=== PATIENT | male | born 1995 | race Caucasian/White ===

== ENCOUNTER 2025-02-16 18:15 | Emergency (ER) | payer OTHER, SELFPAY ==
--- NOTE | 2025-02-16 18:29 | ED_ITS ---
HPI - Abdominal Pain General Chief Complaint: Abdominal Pain Stated Complaint: Abdominal Pain Time Seen by Provider: 02/16/25 18:29 Source: patient and RN notes reviewed Mode of arrival: ambulatory Limitations: no limitations History of Present Illness HPI narrative: 29 y/o male presented for c/o right lower abdominal pain. Onset 0500 it woke him from sleep. Says at the time it was across the lower abdomen, but has been persistent and constant to the RLQ. Had a normal stool then diarrhea throughout the day. Denies hematochezia, melena, n/v/f/c. no meds for symptoms. Reports hx renal stones. Related Data Home Medications ?Medication ?Instructions ?Recorded ?Confirmed ?Last Taken ?Type No Home Medications 02/16/25 02/16/25 Unknown History Allergies Allergy/AdvReac Type Severity Reaction Status Date / Time amoxicillin Allergy Hives Verified 02/16/25 18:35 Review of Systems Review of Systems: per HPI All systems reviewed & are unremarkable except as noted in HPI and below PMFSH Comments At time of signature, I have reviewed and agree with nursing past medical, surgical, social and family history unless otherwise noted. Please see nursing chart for further information. There is no relevant family history pertinent to the presenting complaint Exam Narrative: GENERAL: mildly ill-appearing, nontoxic and in no acute distress. EYES: EOMI. Conjunctivae normal. ENT: Mucous membranes pink and moist. CHEST: No respiratory distress. Clear to auscultation. HEART: Regular rate and rhythm. No murmur appreciated. Normal peripheral pulses. ABDOMEN: abd soft, nondistended, normal active bowel sounds. Tender abdomen RLQ; Positive Rovsing sign. No guarding, rebound tenderness, asymmetry or pulsatile mass. EXTREMITIES: Normal range of motion. No edema. SKIN: Warm, dry, no rash. Capillary refill normal. Normal skin turgor. NEURO: No focal deficits. Alert and oriented x3. PSYCH: Normal affect. Course Course Emergency Course: Patient is aware of diagnosis, understands and agrees to treatment plan. Anticipatory guidance given. Patient agrees to follow-up as directed and is aware of reasons to seek care at the emergency department. Portions of this record may have been created with voice recognition software Level of Care: Express Care Visit Vital Signs Vital signs: Vital Signs Temperature 98.9 F 02/16/25 18:30 Pulse Rate 103 H 02/16/25 18:30 Respiratory Rate 20 02/16/25 18:30 Blood Pressure 121/83 02/16/25 18:30 Pulse Oximetry 99 02/16/25 18:30 Oxygen Delivery Room Air 02/16/25 18:30 Temperature 98.9 F 02/16/25 18:30 Pulse Rate 103 H 02/16/25 18:30 Respiratory Rate 20 02/16/25 18:30 Blood Pressure 121/83 02/16/25 18:30 Pulse Oximetry 99 02/16/25 18:30 Oxygen Delivery Room Air 02/16/25 18:30 Transfer Transfered to: [facility] Transportation: Other (private vehicle) Transfer rationale: Pt is agreeable to transfer. Requests transfer to [facility] via private vehicle. Risks of transportation reviewed with pt including injury, worsening of condition and . v/u. Friend will be driving pt; Report called to hospital, spoke with Jack POND, Dr West, accepting physician. Pt is in stable condition at time of transfer. Advised to remain NPO and go directly to the hospital. MDM - Abdominal Pain MDM Narrative Medical decision making narrative: Pt with RLQ abdominal pain, positive Rovsing's sing. Advised concern for appendicitis, and ER transfer. Pt requests [facility]. Pt is in stable condition. Differential Diagnosis Differential diagnosis: Likely abdominal pain, acute appendicitis, calculus of kidney, constipation, diverticulitis, gastroenteritis, pancreatitis and small bowel obstruction Discharge Plan Discharge Clinical Impression: Abdominal pain Qualifiers: Abdominal location: right lower quadrant Qualified Code(s): R10.31 - Right lower quadrant pain Patient Disposition: Acute Care Hospital Condition: Stable Patient Language: Uzbek Prescriptions: No Action No Home Medications Follow-up/Referrals: PHYSICIAN,ACCOUNT SUPPORT MANAGER [Primary Care Provider] - Time of Disposition: 18:54
[2025-02-16 18:30] VITALS: BP 121/83; PULSE 103; RESP 20; TEMP 37.2; O2SAT 99
== END 2025-02-16 18:49 | disposition short-term general hospital (02) ==
PROVIDERS: Emergency Provider Nurse Practitioner Family
DX: R10.31 Right lower quadrant pain (principal)
CPT/HCPCS: 99202; G0463